=== PATIENT | female | born 1945 | race Caucasian/White ===

== ENCOUNTER 2021-07-09 17:54 | Inpatient (IN) | payer MEDICARE, BC ==
[2021-07-09] MEDS ORDERED: methylPREDNISolone Sod Succ/PF 125 MG/2 ML VIAL ONE (18:05)
[2021-07-09 18:33] LABS: #Eosinphils 0.1 thou/uL (0.0-0.7); #Lymphocytes 1.5 thou/uL (1.20-3.40); #Monocytes 0.9 thou/uL (0.11-0.59); #Neutrophils 7.9 thou/uL (1.40-6.50); %Basophils 0.4 % (0.0-1.0); %Lymphocytes 14.3 % (21.0-51.0); %Neutrophils 75.3 % (42.0-75.0); Hemoglobin 14.1 g/dL (12.0-16.0); Mean Corpuscular HGB CONC 34.1 g/dL (32.0-36.0); Mean Corpuscular Hemoglobin 31.2 pg (27.0-31.0); Mean Corpuscular Volume 91.7 fL (78.0-98.0); Mean Platelet Volume 9.2 fL (7.4-10.4); Platelet Count 240 thou/uL (130-400); RBC Distribution Width 12.6 % (11.5-14.5); Red Blood Cell (RBC) Count 4.53 mill/uL (4.20-5.40); White Blood Cell (WBC) Count 10.5 thou/uL (4.8-10.8)
[2021-07-09 18:45] LABS: PTT 31.3 sec (22.9-36.1); Prothrombin Time 13.4 sec (12.0-14.7)
[2021-07-09 18:58] LABS: ALT (SGPT) 12 U/L (8-55); AST (SGOT) 22 U/L (5-34); Albumin 3.9 g/dL (3.4-4.8); Alkaline Phosphatase 68 U/L (40-110); Anion Gap 10 mmol/L (10-20); BUN (Urea Nitrogen) 11 mg/dL (9.8-20.1); Bilirubin, Total 0.5 mg/dL (0.2-1.2); Calc. Creatinine Clearance 0 mL/min (70-130); Calcium 9.9 mg/dL (7.8-10.44); Carbon Dioxide 25 mmol/L (23-31); Chloride 100 mmol/L (98-107); Glucose 119 mg/dL (83-110); Potassium 4.1 mmol/L (3.5-5.1); Protein, Total 7.9 g/dL (5.8-8.1); Sodium 131 mmol/L (136-145)
[2021-07-09 21:47] LABS: SARS-CoV-2 NAA Rapid Test Not Detected (NotDetected)
[2021-07-09] MEDS ORDERED: Ondansetron PF 4 MG/2 ML Vial IVP PRN (22:20)
[2021-07-09] MEDS ORDERED: Ondansetron ODT 4 MG TAB PO PRN (22:20)
[2021-07-09] MEDS ORDERED: Acetaminophen 650 MG Suppository PR PRN (22:20)
[2021-07-09] MEDS ORDERED: Acetaminophen 325 MG TAB PO PRN (22:20)
[2021-07-10] MEDS ORDERED: Piperacillin/Tazobactam 4.5 GM in Sodium Chloride 0.9% 100 ML IVPB SCH (01:07)
[2021-07-10] MEDS ORDERED: Piperacillin/Tazobactam 3.375 GM in Sodium Chloride 0.9% 100 ML IVPB SCH (01:15)
[2021-07-10 01:41] VITALS: BMI 29.7
[2021-07-10 03:59] LABS: #Lymphocytes 0.7 thou/uL (1.20-3.40); #Monocytes 0.2 thou/uL (0.11-0.59); #Neutrophils 7.2 thou/uL (1.40-6.50); %Lymphocytes 8.1 % (21.0-51.0); %Neutrophils 88.8 % (42.0-75.0); Hemoglobin 14.2 g/dL (12.0-16.0); Mean Corpuscular HGB CONC 33.8 g/dL (32.0-36.0); Mean Corpuscular Hemoglobin 31.2 pg (27.0-31.0); Mean Corpuscular Volume 92.5 fL (78.0-98.0); Mean Platelet Volume 8.5 fL (7.4-10.4); Platelet Count 234 thou/uL (130-400); RBC Distribution Width 12.6 % (11.5-14.5); Red Blood Cell (RBC) Count 4.54 mill/uL (4.20-5.40); White Blood Cell (WBC) Count 8.1 thou/uL (4.8-10.8)
[2021-07-10 04:09] LABS: Anion Gap 14 mmol/L (10-20); BUN (Urea Nitrogen) 10 mg/dL (9.8-20.1); Calc. Creatinine Clearance 85 mL/min (70-130); Calcium 9.7 mg/dL (7.8-10.44); Carbon Dioxide 22 mmol/L (23-31); Chloride 100 mmol/L (98-107); Glucose 157 mg/dL (83-110); Potassium 4.1 mmol/L (3.5-5.1); Sodium 132 mmol/L (136-145)
[2021-07-10] MEDS: Piperacillin/Tazobactam 3.375 GM in Sodium Chloride 0.9% 100 ML IVPB SCH ×3 (05:18→21:34)
[2021-07-10] MEDS ORDERED: Enoxaparin Sodium 40 MG/0.4 ML SYRINGE SC SCH (09:00)
[2021-07-10] MEDS ORDERED: methylPREDNISolone Sod Succ/PF 125 MG/2 ML VIAL IVP SCH (11:15)
[2021-07-10] MEDS ORDERED: hydrALAZINE 20 MG/ML VIAL SLOW IVP PRN (14:26)
[2021-07-10 21:14] VITALS: BP 128/68; TEMP 99.4
== END 2021-07-11 04:10 | disposition left against medical advice (07) | DRG 920 ==
LOC: ERS 17:54 → CCU 19:39 → 2NO 07-10 17:10
PROVIDERS: ADMIT Student in an Organized Health Care Education/Training Program; ATTEND Internal Medicine
DX: K91.871 Postprocedural hematoma of a digestive system organ or structure following other procedure (principal); K12.2 Cellulitis and abscess of mouth; Y84.8 Other medical procedures as the cause of abnormal reaction of the patient, or of later complication, without mention of misadventure at the time of the procedure; Z20.822 Contact with and (suspected) exposure to COVID-19; Z53.29 Procedure and treatment not carried out because of patient's decision for other reasons; Z98.42 Cataract extraction status, left eye; Z98.41 Cataract extraction status, right eye
CPT/HCPCS: 36415; 80048; 80053; 85025; 85610; 85730; 88173; 88305; 96374; J0360; J2543; J2930; J3490; U0002

== ENCOUNTER 2021-07-21 08:32 | Day surgery (SDC) | payer MEDICARE, BC ==
[2021-07-20 11:52] VITALS: BMI 28.1
[2021-07-21] MEDS ORDERED: Lidocaine 4% PF 5 ML AMP NEB SCH (09:45)
[2021-07-21] MEDS ORDERED: Lidocaine 1% w/Epinephrine 1:100K 30 ML VIAL ONE (09:57)
[2021-07-21] MEDS ORDERED: AFRIN NASAL MIST 15 ML BOT ONE (10:12)
[2021-07-21] MEDS ORDERED: Midazolam HCl 2 mg/2 ml Vial ONE (10:13)
[2021-07-21] MEDS ORDERED: Fentanyl 100 MCG/2 ML VIAL ONE ×2 (10:13→12:09)
[2021-07-21] MEDS ORDERED: Dexmedetomidine 200 MCG/2 ML VIAL ONE (10:13)
[2021-07-21] MEDS ORDERED: Ketamine 50 MG/ML (10ML VIAL) ONE (10:21)
[2021-07-21] MEDS ORDERED: Dexamethasone 20 MG/5 ML VIAL ONE (10:35)
[2021-07-21] MEDS ORDERED: Ondansetron PF 4 MG/2 ML Vial ONE (10:35)
[2021-07-21] MEDS ORDERED: Glycopyrrolate 0.2 MG/ML 5 ML SYRINGE ONE (10:35)
== END 2021-07-21 17:35 | disposition home or self-care (01) ==
LOC: SDC 08:32
PROVIDERS: ATTEND Otolaryngology Plastic Surgery within the Head & Neck
PROC: 0B113F4 Bypass Trachea to Cutaneous with Tracheostomy Device, Percutaneous Approach (ICD-10-PCS; principal; 2021-07-21)
PROC: 0CBM8ZX Excision of Pharynx, Via Natural or Artificial Opening Endoscopic, Diagnostic (ICD-10-PCS; 2021-07-21)
DX: C01 Malignant neoplasm of base of tongue (principal); K11.20 Sialoadenitis, unspecified; R13.10 Dysphagia, unspecified; R63.4 Abnormal weight loss; Z68.28 Body mass index [BMI] 28.0-28.9, adult
CPT/HCPCS: 88305; 88341; 88342; 93005; 93010; J1100; J2250; J2405; J3010

== ENCOUNTER 2021-07-22 09:34 | Inpatient (IN) | payer MEDICARE, BC ==
[2021-07-22 10:11] LABS: Hemoglobin 14.9 g/dL (12.0-16.0); Mean Corpuscular HGB CONC 31.6 g/dL (32.0-36.0); Mean Corpuscular Hemoglobin 29.2 pg (27.0-31.0); Mean Corpuscular Volume 92.3 fL (78.0-98.0); Mean Platelet Volume 8.6 fL (7.4-10.4); Platelet Count 298 thou/uL (130-400); RBC Distribution Width 12.7 % (11.5-14.5); Red Blood Cell (RBC) Count 5.09 mill/uL (4.20-5.40)
[2021-07-22 10:36] LABS: Band 16 % (5-11); Lymphocytes 5 % (21-51); MDiff Complete? YES; Monocytes 4 % (0-10); Neutrophil 65 % (42-75); Reactive Lymphocytes 9 % (0-10)
[2021-07-22 10:43] LABS: ALT (SGPT) 14 U/L (8-55); AST (SGOT) 20 U/L (5-34); Alkaline Phosphatase 78 U/L (40-110); Anion Gap 16 mmol/L (10-20); BUN (Urea Nitrogen) 14 mg/dL (9.8-20.1); Bilirubin, Total 0.8 mg/dL (0.2-1.2); Calc. Creatinine Clearance 0 mL/min (70-130); Calcium 10.1 mg/dL (7.8-10.44); Carbon Dioxide 24 mmol/L (23-31); Chloride 93 mmol/L (98-107); Globulin 3.7 g/dL (2.4-3.5); Glucose 156 mg/dL (83-110); Potassium 4.7 mmol/L (3.5-5.1); Protein, Total 7.7 g/dL (5.8-8.1); Sodium 128 mmol/L (136-145)
[2021-07-22] MEDS ORDERED: Ondansetron PF 4 MG/2 ML Vial IVP PRN (17:27)
[2021-07-22] MEDS ORDERED: Acetaminophen 650 MG Suppository PR PRN (17:27)
[2021-07-22] MEDS ORDERED: Ondansetron ODT 4 MG TAB PO PRN (17:27)
[2021-07-22] MEDS ORDERED: Acetaminophen 325 MG TAB PO PRN (17:27)
[2021-07-22] MEDS ORDERED: Piperacillin/Tazobactam 3.375 GM in Sodium Chloride 0.9% 100 ML IVPB SCH (18:45)
[2021-07-22] MEDS ORDERED: VANCOMYCIN 2 GRAM/400 ML BAG 2 GM in Premix Bag 1 BAG IVPB SCH (18:45)
[2021-07-22] MEDS ORDERED: Vancomycin 1 GM in Premix Bag 1 BAG IVPB SCH (18:45)
[2021-07-22 19:45] LABS: Sodium 127 mmol/L (136-145)
[2021-07-22 19:48] LABS: Lactic Acid 1.4 mmol/L (0.5-2.2)
[2021-07-22] MEDS: Sodium Chloride 0.9% 1,000 ML IV SCH (20:05)
[2021-07-22 20:21] VITALS: BMI 27.3
[2021-07-22 22:57] LABS: Sodium, Urine Less than 20 mmol/L (Not Available); Urea Nitrogen, Random Urine 427 mg/dl
[2021-07-22] MEDS: Piperacillin/Tazobactam 3.375 GM in Sodium Chloride 0.9% 100 ML IVPB SCH (23:40)
[2021-07-23 01:59] LABS: Sodium 130 mmol/L (136-145)
[2021-07-23] MEDS: Piperacillin/Tazobactam 3.375 GM in Sodium Chloride 0.9% 100 ML IVPB SCH ×3 (06:13→22:33)
[2021-07-23 06:52] LABS: Sodium 133 mmol/L (136-145)
[2021-07-23 06:56] LABS: #Lymphocytes 0.8 thou/uL (1.20-3.40); #Monocytes 0.7 thou/uL (0.11-0.59); #Neutrophils 9.5 thou/uL (1.40-6.50); %Basophils 0.1 % (0.0-1.0); %Eosinophils 0.4 % (0.0-10.0); %Lymphocytes 7.6 % (21.0-51.0); %Monocytes 6.6 % (0.0-10.0); %Neutrophils 85.4 % (42.0-75.0); Hemoglobin 13.3 g/dL (12.0-16.0); Mean Corpuscular HGB CONC 33.2 g/dL (32.0-36.0); Mean Corpuscular Hemoglobin 30.5 pg (27.0-31.0); Mean Corpuscular Volume 92.1 fL (78.0-98.0); Mean Platelet Volume 8.1 fL (7.4-10.4); Platelet Count 193 thou/uL (130-400); RBC Distribution Width 12.7 % (11.5-14.5); Red Blood Cell (RBC) Count 4.34 mill/uL (4.20-5.40); White Blood Cell (WBC) Count 11.1 thou/uL (4.8-10.8)
[2021-07-23 06:57] LABS: Anion Gap 14 mmol/L (10-20); BUN (Urea Nitrogen) 12 mg/dL (9.8-20.1); Calc. Creatinine Clearance 86 mL/min (70-130); Calcium 9.1 mg/dL (7.8-10.44); Carbon Dioxide 22 mmol/L (23-31); Chloride 101 mmol/L (98-107); Glucose 106 mg/dL (83-110); Potassium 4.2 mmol/L (3.5-5.1); Sodium 133 mmol/L (136-145)
[2021-07-23] MEDS: Sodium Chloride 0.9% 1,000 ML IV SCH (16:59)
[2021-07-23] MEDS ORDERED: VANCOMYCIN 1.75 GM/350 ML BAG 1.75 GM in Premix Bag 1 BAG IVPB SCH (19:00)
[2021-07-23] MEDS ORDERED: Bacteriostatic Water 30 ML VIAL FS PRN (20:45)
[2021-07-23] MEDS: methylPREDNISolone Sod Succ 40 MG VIAL IVP SCH (22:29)
[2021-07-23 22:33] LABS: Sodium 138 mmol/L (136-145)
[2021-07-24] MEDS ORDERED: Piperacillin/Tazobactam 3.375 GM VIAL ONE (06:13)
[2021-07-24] MEDS: Piperacillin/Tazobactam 3.375 GM in Sodium Chloride 0.9% 100 ML IVPB SCH ×2 (07:07→16:00)
[2021-07-24] MEDS: methylPREDNISolone Sod Succ 40 MG VIAL IVP SCH ×2 (07:31→14:00)
[2021-07-24 09:19] LABS: Sodium 136 mmol/L (136-145)
[2021-07-24 13:30] LABS: SARS-CoV-2 PCR by NAA Not Detected (NotDetected)
[2021-07-24 17:53] VITALS: BP 142/84; TEMP 98.7
== END 2021-07-24 18:40 | disposition home or self-care (01) | DRG 871 ==
LOC: ERS 09:34 → SURG A 14:52
PROVIDERS: ADMIT Internal Medicine; ATTEND Internal Medicine
DX: A41.9 Sepsis, unspecified organism (principal); J96.01 Acute respiratory failure with hypoxia; E87.1 Hypo-osmolality and hyponatremia; L02.01 Cutaneous abscess of face; E86.0 Dehydration; J20.9 Acute bronchitis, unspecified; Z20.822 Contact with and (suspected) exposure to COVID-19; C02.9 Malignant neoplasm of tongue, unspecified; Z93.0 Tracheostomy status
CPT/HCPCS: 36415; 71045; 80048; 80053; 83605; 83880; 83930; 83935; 84295; 84300; 84484; 84540; 84560; 85025; 87040; 93005; 94640; J2543; J2920; J3370; J3490; J7050; J7620; U0003; U0005

== ENCOUNTER 2021-07-28 12:54 | Inpatient (IN) | payer MEDICARE, BC ==
[2021-07-28 15:04] LABS: #Eosinphils 0.1 thou/uL (0.0-0.7); #Monocytes 0.7 thou/uL (0.11-0.59); #Neutrophils 8.1 thou/uL (1.40-6.50); %Lymphocytes 10.3 % (21.0-51.0); %Neutrophils 81.7 % (42.0-75.0); Hemoglobin 13.6 g/dL (12.0-16.0); Mean Corpuscular HGB CONC 31.7 g/dL (32.0-36.0); Mean Corpuscular Hemoglobin 29.4 pg (27.0-31.0); Mean Corpuscular Volume 92.7 fL (78.0-98.0); Mean Platelet Volume 8.7 fL (7.4-10.4); Platelet Count 125 thou/uL (130-400); Red Blood Cell (RBC) Count 4.61 mill/uL (4.20-5.40); White Blood Cell (WBC) Count 9.9 thou/uL (4.8-10.8)
[2021-07-28] MEDS ORDERED: Piperacillin/Tazobactam 4.5 GM VIAL ONE (15:07)
[2021-07-28] MEDS ORDERED: Vancomycin 1 GM/200 ML BAG ONE (15:07)
[2021-07-28 15:45] LABS: ALT (SGPT) 18 U/L (8-55); AST (SGOT) 18 U/L (5-34); Albumin 3.3 g/dL (3.4-4.8); Alkaline Phosphatase 64 U/L (40-110); Anion Gap 13 mmol/L (10-20); BUN (Urea Nitrogen) 12 mg/dL (9.8-20.1); Bilirubin, Total 0.8 mg/dL (0.2-1.2); Calc. Creatinine Clearance 0 mL/min (70-130); Calcium 8.8 mg/dL (7.8-10.44); Carbon Dioxide 25 mmol/L (23-31); Chloride 101 mmol/L (98-107); Globulin 3.3 g/dL (2.4-3.5); Glucose 104 mg/dL (83-110); Protein, Total 6.6 g/dL (5.8-8.1); Sodium 135 mmol/L (136-145)
[2021-07-28] MEDS ORDERED: Acetaminophen 325 MG TAB PO PRN (17:27)
[2021-07-28] MEDS ORDERED: Ondansetron ODT 4 MG TAB PO PRN (17:27)
[2021-07-28] MEDS ORDERED: Sodium Chloride 0.9% 1,000 ML IV SCH (17:30)
[2021-07-28] MEDS ORDERED: Albuterol Sulfate 2.5 mg/3 ml Neb ONE (18:58)
[2021-07-28 20:54] VITALS: BMI 28.5
[2021-07-28] MEDS: Acetylcysteine 20% 200 MG/ML 30 ML VIAL INH SCH (23:12)
[2021-07-29] MEDS: Acetylcysteine 20% 200 MG/ML 30 ML VIAL INH SCH ×4 (02:10→19:01)
[2021-07-29 07:37] LABS: #Basophils 0.1 thou/uL (0.0-0.2); #Eosinphils 0.2 thou/uL (0.0-0.7); #Lymphocytes 0.6 thou/uL (1.20-3.40); #Monocytes 0.5 thou/uL (0.11-0.59); #Neutrophils 6.8 thou/uL (1.40-6.50); %Basophils 1.4 % (0.0-1.0); %Eosinophils 2.8 % (0.0-10.0); %Lymphocytes 7.4 % (21.0-51.0); %Monocytes 5.7 % (0.0-10.0); %Neutrophils 82.7 % (42.0-75.0); Hemoglobin 12.3 g/dL (12.0-16.0); Mean Corpuscular HGB CONC 31.1 g/dL (32.0-36.0); Mean Corpuscular Hemoglobin 28.9 pg (27.0-31.0); Mean Platelet Volume 8.6 fL (7.4-10.4); Platelet Count 117 thou/uL (130-400); Red Blood Cell (RBC) Count 4.25 mill/uL (4.20-5.40); White Blood Cell (WBC) Count 8.2 thou/uL (4.8-10.8)
[2021-07-29 07:44] LABS: Anion Gap 12 mmol/L (10-20); BUN (Urea Nitrogen) 14 mg/dL (9.8-20.1); Calc. Creatinine Clearance 92 mL/min (70-130); Calcium 8.5 mg/dL (7.8-10.44); Carbon Dioxide 22 mmol/L (23-31); Chloride 107 mmol/L (98-107); Glucose 158 mg/dL (83-110); Sodium 137 mmol/L (136-145)
[2021-07-29] MEDS: Enoxaparin Sodium 40 MG/0.4 ML SYRINGE SC SCH (09:00)
[2021-07-29 21:52] LABS: SARS-CoV-2 NAA Rapid Test Not Detected (NotDetected)
[2021-07-30] MEDS: Acetylcysteine 20% 200 MG/ML 30 ML VIAL INH SCH ×4 (01:38→19:13)
[2021-07-30] MEDS: Enoxaparin Sodium 40 MG/0.4 ML SYRINGE SC SCH (10:00)
[2021-07-31] MEDS: Acetylcysteine 20% 200 MG/ML 30 ML VIAL INH SCH ×3 (00:17→12:31)
[2021-07-31 08:02] VITALS: BP 122/67; TEMP 98.1
[2021-07-31] MEDS: Enoxaparin Sodium 40 MG/0.4 ML SYRINGE SC SCH (08:16)
== END 2021-07-31 17:31 | disposition home or self-care (01) | DRG 205 ==
LOC: ERS 12:54 → ONC 17:17
PROVIDERS: ADMIT Internal Medicine; ATTEND Internal Medicine
PROC: 3E0G76Z Introduction of Nutritional Substance into Upper GI, Via Natural or Artificial Opening (ICD-10-PCS; principal; 2021-07-28)
DX: J95.03 Malfunction of tracheostomy stoma (principal); J96.21 Acute and chronic respiratory failure with hypoxia; C77.9 Secondary and unspecified malignant neoplasm of lymph node, unspecified; C10.9 Malignant neoplasm of oropharynx, unspecified; Z20.822 Contact with and (suspected) exposure to COVID-19; R13.12 Dysphagia, oropharyngeal phase; C02.9 Malignant neoplasm of tongue, unspecified; C44.42 Squamous cell carcinoma of skin of scalp and neck; E86.0 Dehydration; Y83.3 Surgical operation with formation of external stoma as the cause of abnormal reaction of the patient, or of later complication, without mention of misadventure at the time of the procedure; Z79.899 Other long term (current) drug therapy; Z98.42 Cataract extraction status, left eye; Z98.41 Cataract extraction status, right eye; Z80.0 Family history of malignant neoplasm of digestive organs
CPT/HCPCS: 36415; 71045; 80048; 80053; 83605; 85025; 87040; 94640; 96365; 96367; J0132; J2543; J3370; J7050; J7611; J7620; U0002

== ENCOUNTER 2021-08-02 21:05 | Inpatient (IN) | payer MEDICARE, BC ==
[2021-08-03] MEDS ORDERED: Ondansetron PF 4 MG/2 ML Vial IVP PRN (00:26)
[2021-08-03] MEDS ORDERED: Acetaminophen 325 MG TAB PO PRN (00:26)
[2021-08-03] MEDS ORDERED: Sodium Chloride 0.9% 1,000 ML IV SCH (00:45)
[2021-08-03 01:48] LABS: Troponin I Less than 0.010 ng/mL (< 0.028)
[2021-08-03] MEDS ORDERED: Enoxaparin Sodium 80 MG/0.8 ML SYRINGE ONE ×2 (02:53→13:48)
[2021-08-03] MEDS: Enoxaparin Sodium 80 MG/0.8 ML SYRINGE SC SCH ×2 (02:56→14:05)
[2021-08-03 03:57] LABS: #Basophils 0.1 thou/uL (0.0-0.2); #Lymphocytes 0.3 thou/uL (1.20-3.40); #Monocytes 0.2 thou/uL (0.11-0.59); #Neutrophils 11.2 thou/uL (1.40-6.50); %Basophils 0.8 % (0.0-1.0); %Eosinophils 0.1 % (0.0-10.0); %Lymphocytes 2.4 % (21.0-51.0); %Monocytes 1.8 % (0.0-10.0); %Neutrophils 94.9 % (42.0-75.0); Hemoglobin 11.6 g/dL (12.0-16.0); Mean Corpuscular Hemoglobin 29.9 pg (27.0-31.0); Mean Corpuscular Volume 93.3 fL (78.0-98.0); Mean Platelet Volume 9.3 fL (7.4-10.4); Platelet Count 122 thou/uL (130-400); RBC Distribution Width 12.9 % (11.5-14.5); Red Blood Cell (RBC) Count 3.87 mill/uL (4.20-5.40); White Blood Cell (WBC) Count 11.8 thou/uL (4.8-10.8)
[2021-08-03] MEDS ORDERED: VANCOMYCIN 1.25 GM/250 ML BAG 1.25 GM in Premix Bag 1 BAG IVPB SCH (04:00)
[2021-08-03 04:17] LABS: Anion Gap 14 mmol/L (10-20); BUN (Urea Nitrogen) 17 mg/dL (9.8-20.1); Calc. Creatinine Clearance 0 mL/min (70-130); Calcium 8.4 mg/dL (7.8-10.44); Carbon Dioxide 21 mmol/L (23-31); Chloride 106 mmol/L (98-107); Glucose 157 mg/dL (83-110); Potassium 4.3 mmol/L (3.5-5.1); Sodium 137 mmol/L (136-145)
[2021-08-03 04:23] LABS: Troponin I Less than 0.010 ng/mL (< 0.028)
[2021-08-03] MEDS ORDERED: Cefepime 1 GM VIAL ONE (05:40)
[2021-08-03] MEDS: Cefepime 2 GM in Sodium Chloride 0.9% 100 ML IVPB SCH ×2 (05:46→18:08)
[2021-08-03] MEDS ORDERED: methylPREDNISolone Sod Succ 40 MG VIAL IVP SCH (15:00)
[2021-08-03] MEDS ORDERED: AFRIN NASAL MIST 15 ML BOT ONE (17:13)
[2021-08-03 20:37] VITALS: BMI 30.2
[2021-08-04] MEDS: Cefepime 2 GM in Sodium Chloride 0.9% 100 ML IVPB SCH ×2 (06:33→17:37)
[2021-08-04] MEDS: methylPREDNISolone Sod Succ 40 MG VIAL IVP SCH (09:02)
[2021-08-04] MEDS ORDERED: Midazolam HCl 2 mg/2 ml Vial ONE (11:13)
[2021-08-04] MEDS ORDERED: Ketamine 50 MG/ML (10ML VIAL) ONE (11:13)
[2021-08-04] MEDS ORDERED: ceFAZolin 2 GM/DEX 5% 100 ML BAG ONE (11:14)
[2021-08-04] MEDS ORDERED: PROPOFOL 200 MG/20 ML VIAL ONE (11:24)
[2021-08-04] MEDS ORDERED: Ondansetron HCl/PF 4 MG/2 ML Vial IVP PRN (11:55)
[2021-08-04] MEDS: Enoxaparin Sodium 80 MG/0.8 ML SYRINGE SC SCH (14:16)
[2021-08-04] MEDS ORDERED: Glycopyrrolate 0.2 MG/ML 5 ML SYRINGE SLOW IVP SCH (15:53)
[2021-08-04] MEDS ORDERED: Scopolamine 1.5 mg/72 hour Patch TD SCH (16:00)
[2021-08-05] MEDS: Enoxaparin Sodium 80 MG/0.8 ML SYRINGE SC SCH ×2 (00:55→14:02)
[2021-08-05] MEDS: Cefepime 2 GM in Sodium Chloride 0.9% 100 ML IVPB SCH (05:10)
[2021-08-05] MEDS: methylPREDNISolone Sod Succ 40 MG VIAL IVP SCH (08:45)
[2021-08-05] MEDS ORDERED: predniSONE 20 MG TAB PO SCH (10:30)
[2021-08-05 11:23] LABS: #Basophils 0.1 thou/uL (0.0-0.2); #Lymphocytes 0.8 thou/uL (1.20-3.40); #Monocytes 0.5 thou/uL (0.11-0.59); #Neutrophils 9.6 thou/uL (1.40-6.50); %Basophils 0.5 % (0.0-1.0); %Eosinophils 0.3 % (0.0-10.0); %Lymphocytes 7.2 % (21.0-51.0); %Monocytes 4.8 % (0.0-10.0); %Neutrophils 87.3 % (42.0-75.0); Hemoglobin 12.3 g/dL (12.0-16.0); Mean Corpuscular HGB CONC 32.9 g/dL (32.0-36.0); Mean Corpuscular Hemoglobin 30.5 pg (27.0-31.0); Mean Corpuscular Volume 92.5 fL (78.0-98.0); Mean Platelet Volume 9.5 fL (7.4-10.4); Platelet Count 225 thou/uL (130-400); RBC Distribution Width 12.9 % (11.5-14.5); Red Blood Cell (RBC) Count 4.03 mill/uL (4.20-5.40)
[2021-08-05 12:02] VITALS: BP 112/59; TEMP 98.4
[2021-08-06] MEDS ORDERED: predniSONE 20 MG TAB PO SCH (08:00)
== END 2021-08-05 14:00 | disposition home or self-care (01) | DRG 871 ==
LOC: ERS 21:05 → ERHOLD 22:04 → 2NO 08-03 15:38
PROVIDERS: ADMIT Internal Medicine; ATTEND Internal Medicine
PROC: 0DH63UZ Insertion of Feeding Device into Stomach, Percutaneous Approach (ICD-10-PCS; principal; 2021-08-04)
DX: A41.9 Sepsis, unspecified organism (principal); I26.99 Other pulmonary embolism without acute cor pulmonale; J69.0 Pneumonitis due to inhalation of food and vomit; Z20.822 Contact with and (suspected) exposure to COVID-19; C02.9 Malignant neoplasm of tongue, unspecified; D64.9 Anemia, unspecified; D69.6 Thrombocytopenia, unspecified; K76.89 Other specified diseases of liver; R13.12 Dysphagia, oropharyngeal phase; R06.89 Other abnormalities of breathing; J20.9 Acute bronchitis, unspecified; Z93.0 Tracheostomy status; Z85.810 Personal history of malignant neoplasm of tongue; Z79.51 Long term (current) use of inhaled steroids; Z79.899 Other long term (current) drug therapy
CPT/HCPCS: 36415; 80048; 83880; 84484; 85025; 93306; 94640; J0692; J1650; J2250; J2704; J2920; J3370; J3490; J7050; J7512

== ENCOUNTER 2021-08-13 09:33 | Outpatient (CLI) | payer MEDICARE, BC | END 2021-08-13 09:34 | disposition home or self-care (01) | LOC: PET 09:33 | PROVIDERS: ATTEND Internal Medicine Hematology & Oncology | DX: C02.9 Malignant neoplasm of tongue, unspecified (principal); C79.89 Secondary malignant neoplasm of other specified sites; R59.0 Localized enlarged lymph nodes; J18.9 Pneumonia, unspecified organism | CPT/HCPCS: 78815; A9552; 36415; 80053; 82248; 83615; 83735; 84100; 84550 ==

== ENCOUNTER 2022-01-20 11:45 | Outpatient (CLI) | payer MEDICARE, BC | END 2022-01-20 11:46 | disposition home or self-care (01) | LOC: PET 11:45 | PROVIDERS: ATTEND Radiology Radiation Oncology | DX: C02.8 Malignant neoplasm of overlapping sites of tongue (principal) | CPT/HCPCS: 78815; A9552 ==

== ENCOUNTER 2022-04-18 13:01 | Outpatient (CLI) | payer MEDICARE, BC | END 2022-04-18 13:02 | disposition home or self-care (01) | LOC: RAD 13:01 | PROVIDERS: ATTEND Otolaryngology Plastic Surgery within the Head & Neck | DX: C01 Malignant neoplasm of base of tongue (principal); C44.42 Squamous cell carcinoma of skin of scalp and neck; K21.9 Gastro-esophageal reflux disease without esophagitis | CPT/HCPCS: 74220 ==

== ENCOUNTER 2022-06-07 13:14 | Outpatient (CLI) | payer MEDICARE, BC ==
[2022-06-07 14:46] LABS: #Eosinphils 0.1 10x3/uL (0.0-0.5); #Monocytes 0.4 10x3/uL (0.0-1.1); #Neutrophils 3.9 10x3/uL (1.5-8.4); %Basophils 0.4 % (0.0-2.0); %Eosinophils 1.1 % (0.0-6.0); %Lymphocytes 17.2 % (18.0-47.0); %Monocytes 8.1 % (0.0-10.0); Hemoglobin 12.9 g/dL (12.0-15.5); Mean Corpuscular HGB CONC 33.5 g/dL (32.0-36.0); Mean Corpuscular Hemoglobin 32.7 pg (27.0-33.0); Mean Corpuscular Volume 97.7 fl (81.6-98.3); Mean Platelet Volume 11.3 fl (7.4-10.4); Platelet Count 166 10x3/uL (150-450); RBC Distribution Width 13.4 % (11.5-14.5); Red Blood Cell (RBC) Count 3.94 10x6/uL (3.90-5.03); White Blood Cell (WBC) Count 5.3 10x3/uL (3.5-10.5)
== END 2022-06-07 13:15 | disposition home or self-care (01) ==
LOC: LABBT 13:14
PROVIDERS: ATTEND Plastic Surgery
DX: Z01.818 Encounter for other preprocedural examination (principal); Z20.822 Contact with and (suspected) exposure to COVID-19
CPT/HCPCS: 85025; 87811; 93005; 93010

== ENCOUNTER 2022-06-10 11:00 | Observation (INO) | payer MEDICARE, BC ==
[2022-06-10] MEDS ORDERED: Heparin 5,000 UNITS/ML VIAL ONE (11:46)
[2022-06-10] MEDS ORDERED: fentaNYL Citrate/PF 100 MCG/2 ML SYRINGE ONE ×2 (13:41→16:14)
[2022-06-10] MEDS ORDERED: Bacitracin Zinc Ointment 30 gm TUBE ONE (14:01)
[2022-06-10] MEDS ORDERED: EPINEPHrine 1 MG/ML AMP ONE (14:01)
[2022-06-10] MEDS ORDERED: Bupivacaine/Epinephrine 0.25% 30 ML VIAL ONE ×3 (14:01→14:04)
[2022-06-10] MEDS ORDERED: Ophthalmic Irrigation Solution 15 ML ONE (14:01)
[2022-06-10] MEDS ORDERED: Sodium Chloride 0.9% 100 ML ONE (14:13)
[2022-06-10] MEDS ORDERED: CEFAZOLIN 2 GM VIAL ONE (14:13)
[2022-06-10] MEDS ORDERED: ePHEDrine 50 MG/ML VIAL ONE (14:29)
[2022-06-10] MEDS ORDERED: Dexamethasone 20 MG/5 ML VIAL ONE (14:29)
[2022-06-10] MEDS ORDERED: PROPOFOL 200 MG/20 ML VIAL ONE (14:29)
[2022-06-10] MEDS ORDERED: Glycopyrrolate 0.2 MG/ML 5 ML SYRINGE ONE (14:29)
[2022-06-10] MEDS ORDERED: Ondansetron PF 4 MG/2 ML Vial ONE (14:29)
[2022-06-10] MEDS ORDERED: Lidocaine 1% PF 5 ML VIAL ONE (14:29)
[2022-06-10] MEDS ORDERED: Neostigmine Methylsulfate 3 MG/3 ML SYRINGE ONE (14:29)
[2022-06-10] MEDS ORDERED: Rocuronium Bromide 10 MG/ML (10ML VIAL) ONE (14:29)
[2022-06-10] MEDS ORDERED: Dexmedetomidine 200 MCG/2 ML VIAL ONE (16:15)
[2022-06-10] MEDS ORDERED: Ondansetron HCl/PF 4 MG/2 ML Vial IVP PRN (18:04)
[2022-06-10] MEDS ORDERED: Promethazine HCl 25 MG/ML VIAL IM PRN (18:04)
[2022-06-10] MEDS ORDERED: Promethazine HCl 25 MG/ML VIAL IVPB PRN (18:04)
[2022-06-10] MEDS ORDERED: HYDROcodone/Acetaminophen 5/325 mg Tablet PER TUBE PRN (19:59)
[2022-06-10] MEDS ORDERED: Morphine 2 MG/ML VIAL SLOW IVP PRN (20:00)
[2022-06-10 22:18] VITALS: BMI 28.3
[2022-06-10] MEDS: CEFAZOLIN 2 GM in Sodium Chloride 0.9% 100 ML IVPB SCH ×2 (22:23→22:47)
[2022-06-10] MEDS: CEFAZOLIN 1 GM in Sodium Chloride 0.9% 100 ML IVPB SCH (22:53)
[2022-06-11] MEDS: CEFAZOLIN 1 GM in Sodium Chloride 0.9% 100 ML IVPB SCH (05:56)
[2022-06-11 17:14] VITALS: BP 129/77; TEMP 98.3
== END 2022-06-11 16:50 | disposition home or self-care (01) ==
LOC: SDC 11:00 → MSONC 19:36
PROVIDERS: ADMIT Plastic Surgery; ATTEND Plastic Surgery
PROC: 0HB0XZZ Excision of Scalp Skin, External Approach (ICD-10-PCS; principal; 2022-06-10)
DX: C44.42 Squamous cell carcinoma of skin of scalp and neck (principal); L57.8 Other skin changes due to chronic exposure to nonionizing radiation; Z79.01 Long term (current) use of anticoagulants; Z79.2 Long term (current) use of antibiotics; Z79.82 Long term (current) use of aspirin; Z79.899 Other long term (current) drug therapy; Z97.8 Presence of other specified devices
CPT/HCPCS: 88305; 88331; 88332; J0171; J0690; J1100; J1644; J2405; J2704; J3490

== ENCOUNTER 2022-12-16 11:28 | Day surgery (SDC) | payer MEDICARE, BC ==
[2022-12-14 13:44] VITALS: BMI 28.1
[2022-12-16] MEDS ORDERED: Ophthalmic Irrigation Solution 0 ML ONE (12:31)
[2022-12-16] MEDS ORDERED: Bupivacaine/Epinephrine 0.25% 30 ML VIAL ONE (12:31)
[2022-12-16] MEDS ORDERED: Bacitracin Zinc Ointment 30 gm TUBE ONE (12:31)
[2022-12-16] MEDS ORDERED: fentaNYL PF 100 MCG/2 ML SYRINGE ONE ×2 (12:51→13:30)
[2022-12-16] MEDS ORDERED: Sodium Chloride 0.9% 100 ML ONE (12:52)
[2022-12-16] MEDS ORDERED: CEFAZOLIN 2 GM VIAL ONE (12:52)
[2022-12-16] MEDS ORDERED: Phenylephrine 10 MG/ML VIAL ONE (13:30)
[2022-12-16] MEDS ORDERED: Midazolam HCl 2 mg/2 ml Vial ONE (13:30)
[2022-12-16] MEDS ORDERED: Propofol 500 MG/50 ML VIAL ONE (13:30)
[2022-12-16] MEDS ORDERED: Ketamine 50 MG/ML (10ML VIAL) ONE (13:30)
== END 2022-12-16 15:45 | disposition home or self-care (01) ==
LOC: SDC 11:28
PROVIDERS: ATTEND Plastic Surgery
PROC: 0HB0XZZ Excision of Scalp Skin, External Approach (ICD-10-PCS; principal; 2022-12-16)
DX: C44.41 Basal cell carcinoma of skin of scalp and neck (principal); Z79.01 Long term (current) use of anticoagulants; Z79.899 Other long term (current) drug therapy
CPT/HCPCS: 88305; 88331; 88332; J2250; J2370; J2704; J3490

== ENCOUNTER 2022-12-27 13:35 | Outpatient (CLI) | payer MEDICARE, BC | END 2022-12-27 13:36 | disposition home or self-care (01) | LOC: RAD 13:35 | PROVIDERS: ATTEND Radiology Radiation Oncology | DX: R13.10 Dysphagia, unspecified (principal); R63.30 Feeding difficulties, unspecified | CPT/HCPCS: 74230 ==

== ENCOUNTER 2023-12-20 09:21 | Outpatient (CLI) | payer MEDICARE, BC ==
[~2023-12-20 09:21] MED LIST: Iopamidol 370 76% 100 ML VIAL ONE
== END 2023-12-20 09:22 | disposition home or self-care (01) ==
LOC: CT 09:21
PROVIDERS: ATTEND Radiology Radiation Oncology
DX: C76.0 Malignant neoplasm of head, face and neck (principal); J98.11 Atelectasis; J98.4 Other disorders of lung; K76.89 Other specified diseases of liver; M27.8 Other specified diseases of jaws; R93.89 Abnormal findings on diagnostic imaging of other specified body structures; Z95.828 Presence of other vascular implants and grafts
CPT/HCPCS: 70491; 71260